=== PATIENT | female | born 1985 | race Caucasian/White ===

== ENCOUNTER 2021-08-26 13:41 | Outpatient (RCR) | payer OTHER, SELFPAY ==
--- NOTE | 2021-08-26 16:23 | PC.NURSE ---
IN :1341 OUT: 1530 History: Mother had a repeat section at 40 wks at [facility]. Mother denies any medical situations or medication that would hinder but does have anxiety. Mother's breast and nipple assessment are unremarkable. Observation: Visualizing latch appears to have the top lip rolled under a bit. Mother does very little stimulation, no skin to skin prior to latching and latches infant shallow onto the breast. Mother encouraged to wait for a big wide open gape but doesn't want to do anything that will make the fussy, so she latches infant to the nipple to get the baby something . Discussed milk production with an optimal latch. Mother states she has plenty of milk and pumps 2-5 oz when she pumps to feed depending on how much time has gone by. She latches when she visualizes feeding cues but baby pops on/off during the feeding, is gassy and becomes fussier over time. Mom states will get upset, then will refuse to latch by closing his mouth. After many attempts to the breast and popping on/off there was 10cc of milk exchanged due to would not stay latched long enough for a let-down to occur. Mother becomes frustrated with infant becoming fussy and request dad to take the son more than once during the session. Mother states she doesn't do well on the test referring to the [place] Depression Scale assessment tool but doesn't want to contact her Provider for medication because she doesn't want to take medication. Mother encouraged to contact her Provider. After quite some time mother was positive to the suggestion to attempt football position for . was latched well and nursing, then was distracted by dads voice and pulled off the breast. is also fussy with bottle feeding. Maxilla frenum appears tight. is here for PKU. With assistance of Marc Ambrocio RN, CLC was encouraged to drink breastmilk from a bottle using a finger for chin support and it was suggested that mother use the technique for as well. Weight at 8-6. Weight today is 10-1. Plan: Mother is going to breastfeed when early feeding cues are visualized in a quiet room with no distractions. She is going to practice the football position and work on getting infant to latch optimally with a deeper latch. Mother will feed her infant using the finger to support the lower jaw for feeding. Follow-up: RN plans to follow up with the patient later this week. Phone message was left for Dr. Hernandez related to this note to be fax and there will be a follow up call to Dr. Hernandez as well.
--- NOTE | 2021-08-27 13:33 | PC.NURSE ---
1313 - Follow up phone to check-in on the patient. Mother's voice is pleasant and not forced. She has grandma there helping her with her children. She is encouraged and attempting the positions, techniques to encourage to latch well and maintain latch. She has plans to follow up with the [facility] and [facility] for support in the community. Mother mentioned she had frustrations with her first child regarding and she got through that. She states she is finding ways to reduce her frustration, cope with changing hormones and the new schedule of going back to work. She has adjusted her plan to feed her with more flexibility to get baby fed with expressed milk in a bottle when the latching isn't going well. Encouraged her to call for support and/or a Provider as needed and get involved with a community group.
--- NOTE | 2021-09-12 16:54 | PC.NURSE ---
9604 - Mother followed-up with a phone call. She wanted to review education regarding latching, feeding , positioning, gas, possible reflux and frustrations. Mother states she has less frustration now that she is resolved to working with and bottle feeding once becomes frustrated and refuses to breastfeed. RN encouraged skin to skin, calm, distraction free room, building trust with her , looking for REM and practicing when she visualizes the early feeding cues before the is crying. 8-12 times in 24 hours. Reduce crying times with skin to skin and to encourage weight gain from not burning calories crying. Keeping infant upright for 30 min after feeding skin to skin. Cycling legs, rotating torso side to side, straightening legs, then flexing legs and/or placing infant belly to chest and using clockwise circular motion to facilitate gas movement. Mother states she is eating a lot of dairy in her diet and is not sure she will be able to take cow's milk out of her diet to see if that could potentially be causing GI upset for her . Offered mother to call again or make another OP visit if needed. Mother voiced understanding the review of information and calling or making an appt if needed.
== END 2021-11-24 23:59 | disposition home or self-care (01) ==
LOC: ANHOBOP 13:41
PROVIDERS: PCP Pediatrics; Visit Provider Pediatrics
DX: Z46.1 Encounter for fitting and adjustment of hearing aid (principal)
CPT/HCPCS: 99204; G0463

== ENCOUNTER 2022-11-28 13:19 | Emergency (ER) | payer OTHER, SELFPAY ==
--- NOTE | 2022-11-28 13:27 | ED.GENADULT ---
HPI - General Adult General Chief complaint: Skin/Abscess/Foreign Body Stated complaint: breast inf Time Seen by Provider: 11/28/22 13:35 Source: patient, RN notes reviewed and old records reviewed Mode of arrival: ambulatory Limitations: no limitations History of Present Illness HPI narrative: 37-year-old female presents to the [facility] with complaints of left breast pain, redness, inflammation since . Has a history of breast infections. currently trying to wean her [id number] Onset (ago): day(s) (2) Related Data Home Medications Medication Instructions Recorded Confirmed multivitamin 1 tablet PO DAILY 01/13/22 11/28/22 Allergies Allergy/AdvReac Type Severity Reaction Status Date / Time No Known Allergies Allergy Verified 11/28/22 13:28 Review of Systems Review of Systems: All systems reviewed & are unremarkable except as noted in HPI and below Constitutional: Constitutional: Reports no additional constitutional complaints Eyes: Eyes: Reports no additional eye complaints ENT: Reports system reviewed and no additional complaints, except as documented Cardiovascular: Cardiovascular: Reports no additional cardiovascular complaints, Denies chest pain and Denies dyspnea Respiratory: Respiratory: Reports no additional respiratory complaints, Denies chest congestion, Denies cough and Denies dyspnea Gastrointestinal: Gastrointestinal: Reports no additional gastrointestinal complaints, Denies abdominal pain, Denies nausea and Denies vomiting Musculoskeletal: Musculoskeletal: Reports no additional musculoskeletal complaints Integumentary/Breasts: Skin/Breast: Reports as per HPI, Reports breast swelling and Reports breast pain Neurologic: Reports system reviewed and no additional complaints, except as documented Psychiatric: Psychiatric: Reports no additional psychiatric complaints Allergic/Immunologic: Allergic/Immunologic: Reports no additional allergic/immunologic complaints [facility] Past Medical History Medical History Depression Surgical History Surgical History History of delivery x2 History of removal of skin mole Family History Family History Other Diabetes mellitus Heart disease Stomach cancer Social History Social History Smoking status: Never smoker Alcohol intake: never Living arrangements: with family Occupation/Education: occupation Additional occupation/education comments: Professor, [employer] Comments At the time of my signature, I reviewed and agree with the nursing past medical, surgical, social, and family history. There is no relevant family history pertinent to the patient complaint. Exam Const: General: cooperative, healthy appearing, comfortable, no acute distress, well developed, alert and well nourished Nutritional Appearance: well nourished Orientation/consciousness: patient oriented x3 Limitations: no limitations HENMT: Head: normal to inspection Ears: hearing grossly normal bilaterally and external ears normal Face/Nose/Sinus: Normal external nose present, Normal nares present, Normal nasal mucous membranes and turbinates present and normal facial exam Face and sinus: normal facial exam Eyes: General: appearance normal, both eyes and all related structures Alignment and Position: alignment normal Periorbital: periorbital findings normal Pupils: Equal, round and reactive pupils present EOM: EOMs intact bilaterally Neck: Neck: normal visual inspection, full ROM, no lymphadenopathy and no meningeal signs Chest: Chest palpation & inspection: normal inspection of the chest Resp: Effort & Inspection: normal respiratory effort and able to speak in complete sentences Auscultation: clear to auscultation bilate
[2022-11-28 13:31] VITALS: BP 106/61; PULSE 94; RESP 16; TEMP 36.8; O2SAT 100
== END 2022-11-28 13:50 | disposition home or self-care (01) ==
PROVIDERS: Emergency Provider Nurse Practitioner
DX: N61.0 Mastitis without abscess (principal)
CPT/HCPCS: 99213; G0463

== ENCOUNTER 2024-03-11 19:38 | Emergency (ER) | payer OTHER, SELFPAY ==
--- NOTE | 2024-03-11 19:40 | ED.EYEPROB ---
HPI - Eye Problem General Chief complaint: Eye Problems Stated complaint: stomach, left eye puffy/swollen Time Seen by Provider: 03/11/24 19:46 Source: patient and RN notes reviewed Mode of arrival: ambulatory Limitations: no limitations History of Present Illness HPI Narrative: 38-year-old female presents with 2 concerns. She reports a red, tender spot on her left lower eyelid for 3 days. She reports some drainage. She also reports abdominal discomfort, mild nausea, gas, burping for several days. She reports normal bowel movements. Denies nausea or vomiting. Denies abdominal pain. chief complaint: eye redness Related Data Home Medications Medication Instructions Recorded Confirmed ferrous sulfate 325 mg (65 mg 325 mg PO DAILY 03/11/24 03/11/24 iron) tablet Allergies Allergy/AdvReac Type Severity Reaction Status Date / Time No Known Allergies Allergy Verified 03/11/24 19:46 Review of Systems Review of Systems: CONSTITUTIONAL: Denies malaise, chills, sweats, or fever. EYES: Denies visual changes. Reports eyelid redness, irritation, discharge. ENT: Denies rhinorrhea, congestion, sinus pain, otalgia or sore throat. SKIN: Denies rash or itching. ABD: Reports abdominal discomfort, nausea, belching NEUROLOGIC: Denies numbness, weakness, or headache. PSYCHIATRIC: Denies anxiety or depression. All systems reviewed & are unremarkable except as noted in HPI and below PMFSH Past Medical History Medical History Depression Surgical History Surgical History History of delivery x2 History of removal of skin mole Family History Family History Other Diabetes mellitus Heart disease Stomach cancer Social History Social History Smoking status: Never smoker Alcohol intake: never Living arrangements: with family Occupation/Education: occupation Additional occupation/education comments: Professor, [employer] Comments At time of signature, agree with nursing past medical, surgical, social and family history. There is no relevant family history pertinent to the presenting complaint Exam Narrative: GENERAL: Well-appearing, well-nourished, and in no acute distress. HEAD: Normocephalic, atraumatic. EYES: PERRLA and EOMI. No nystagmus. Left sclera and conjunctivae clear, small hordeolum noted on the left lower inner lid. Upper eyelid unremarkable, no periorbital edema noted ENT: Nares clear, turbinates pink, no rhinorrhea or epistaxis. Mucous membranes moist. TM pearly garcia with sharp light reflex bilaterally; no tragal tenderness. NECK: Supple. CHEST: No respiratory distress. Speaks in full sentences. HEART: Regular rate and rhythm. SKIN: Warm, dry, no visible rash. NEURO: Alert and oriented x3. PSYCH: Normal mood and affect Course Course Emergency Course: Patient is aware of diagnosis, understands and agrees to treatment plan. Anticipatory guidance given. Patient agrees to follow-up as directed and is aware of reasons to seek care at the emergency department. Portions of this record may have been created with voice recognition software Level of Care: Express Care Visit Vital Signs Vital signs: Reviewed. MDM - Eye Problem MDM Narrative Medical decision making narrative: Consideration of the following conditions may be warranted for the presenting problem, they are not final diagnoses: Bacterial conjunctivitis, allergic conjunctivitis, viral conjunctivitis, foreign body, blepharitis, chalazion, hordeolum, corneal abrasion, preseptal cellulitis, orbital cellulitis. No evidence of proptosis, ophthalmoplegia, vision loss, pain with eye movement. Exam findings show no acute concerns or changes; patient is non-toxic appearing and is in no distress. P
[2024-03-11 19:48] VITALS: BP 113/57; PULSE 89; RESP 16; TEMP 37.2; O2SAT 99
== END 2024-03-11 20:00 | disposition home or self-care (01) ==
PROVIDERS: Emergency Provider Nurse Practitioner; PCP Nurse Practitioner Family
DX: H00.015 Hordeolum externum left lower eyelid (principal)
CPT/HCPCS: 99213; G0463

== ENCOUNTER 2025-05-07 10:24 | Emergency (ER) | payer OTHER, SELFPAY ==
[2025-05-07 10:39] VITALS: BP 115/72; PULSE 73; RESP 16; TEMP 37; O2SAT 100
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
== END 2025-05-07 11:03 | disposition home or self-care (01) ==
PROVIDERS: Emergency Provider Nurse Practitioner
DX: S16.1XXA Strain of muscle, fascia and tendon at neck level, initial encounter (principal); V89.2XXA Person injured in unspecified motor-vehicle accident, traffic, initial encounter
CPT/HCPCS: 99213; G0463